=== PATIENT | male | born 1985 | race African-American/Black ===

== ENCOUNTER 2020-01-27 23:46 | Emergency (ER) | payer MEDICAID, MEDICARE, OTHER ==
[~2020-01-27] VITALS: Ht 188 cm; Wt 110.9 kg
[2020-01-27 23:50] VITALS: BP 127/80
[2020-01-27] MEDS ORDERED: IBUP-1007 PO (23:56)
--- NOTE | 2020-01-27 23:56 | PHYS DOC ---
Past Medical History Past Medical History: Bipolar, Schizophrenia Additional Past Medical Histor: METH USE YESTERDAY (CHARISSA QUIROZ APRN) Past Surgical History: No Surgical History (CHARISSA QUIROZ APRN) Smoking Status: Current Every Day Smoker Alcohol Use: None Drug Use: None (CHARISSA QUIROZ APRN) Attending Signature I have participated in the care of this patient and I have reviewed and agree with all pertinent clinical information above including history, exam, and recommendations. (DIANNE SHAIKH MD) Adult General Chief Complaint Chief Complaint: HEADACHE HPI HPI Patient is a 34 year old male with a history of schizophrenia, bipolar, currently homeless, who presents to the ED today complaining of 10 out of 10 frontal headache symptoms began 3 days ago. Patient denies any associated symptoms. Reports he has had similar headaches. He states he needs a ride from here to a hotel. He comes to the ED with a bag packed with his personal belongings. Patient denies this being the worst headache in his life. Denies any nausea vomiting. (CHARISSA QUIROZ APRN) Review of Systems Review of Systems Constitutional: Denies fever or chills [] Eyes: Denies change in visual acuity, redness, or eye pain [] HENT: Denies nasal congestion or sore throat [] Respiratory: Denies cough or shortness of breath [] Cardiovascular: No additional information not addressed in HPI [] GI: Denies abdominal pain, nausea, vomiting, bloody stools or diarrhea [] : Denies dysuria or hematuria [] Musculoskeletal: Denies back pain or joint pain [] Integument: Denies rash or skin lesions [] Neurologic: Denies headache, focal weakness or sensory changes [] All other systems were reviewed and found to be within normal limits, except as documented in this note. (CHARISSA QUIROZ APRN) Current Medications Current Medications Current Medications Medications (Trade) Dose Ordered Sig/Francisco Start Time Stop Time Status Last Admin Dose Admin Ibuprofen (Motrin) 200 mg STK-MED ONCE 01/28/20 00:03 01/28/20 00:03 DC (DIANNE SHAIKH MD) Allergies Allergies Allergies Coded Allergies Type Severity Reaction Last Updated Verified Fish Containing Products Adverse Reaction Intermediate N/V 04/30/15 No (DIANNE SHAIKH MD) Physical Exam Physical Exam Constitutional: Well developed, well nourished, no acute distress, non-toxic appearance. [] HENT: Normocephalic, atraumatic, bilateral external ears normal, oropharynx moist, no oral exudates, nose normal. [] Eyes: PERRLA, EOMI, conjunctiva normal, no discharge. [] Neck: Normal range of motion, no tenderness, supple, no stridor. [] Cardiovascular:Heart rate regular rhythm, no murmur [] Lungs & Thorax: Bilateral breath sounds clear to auscultation [] Abdomen: Bowel sounds normal, soft, no tenderness, no masses, no pulsatile masses. [] Skin: Warm, dry, no erythema, no rash. [] Back: No tenderness, no CVA tenderness. [] Extremities: No tenderness, no cyanosis, no clubbing, ROM intact, no edema. [] Neurologic: Alert and oriented X 3, normal motor function, normal sensory function, no focal deficits noted. Cranial nerves II through XII intact Psychologic: Affect normal, judgement normal, mood normal. [] (CHARISSA QUIROZ APRN) Current Patient Data Vital Signs Vital Signs Date Time Temp Pulse Resp B/P (MAP) Pulse Ox O2 Delivery O2 Flow Rate FiO2 01/27/20 23:50 97.0 97 16 127/80 (96) 98 Room Air 97.0 (DIANNE SHAIKH MD) EKG EKG [] (CHARISSA QUIROZ APRN) Radiology/Procedures Radiology/Procedures [] (CHARISSA QUIROZ APRN) Course & Med Decision Making Course & Med Decision Making Pertinent Labs and Imaging studies reviewed. (See chart for details) This is a 34-year-old homeless man presenting to the ED today with a headache for 3 days, there is nothing unusual about his headache, his neurological exam is intact. He was given ibuprofen at discharge. He requested a ride from the hospital to a hotel. Cab provided. (CHARISSA QUIROZ APRN) Dragon Disclaimer Dragon Disclaimer This electronic medical record was generated, in whole or in part, using a voice recognition dictation system. (CHARISSA QUIROZ APRN) Departure Departure Impression: Primary Impression: Headache Disposition: 01 HOME, SELF-CARE Condition: STABLE Referrals: Ghazala DOMINGUEZ MD (PCP) follow up with your doctor in 1-2 weeks Scripts Ibuprofen (IBUPROFEN) 600 Mg Tablet 600 MG PO PRN Q6HRS PRN for INFLAMMATION, #10 TAB Prov: CHARISSA QUIROZ APRN 01/27/20 Problem Qualifiers Primary Impression: Headache Headache type: unspecified Headache chronicity pattern: unspecified pattern Intractability: not intractable Qualified Codes: R51 - Headache CHARISSA QUIROZ MYRIAM Jan 27, 2020 23:56 DIANNE SHAIKH MD Jan 28, 2020 01:22
[2020-01-28] MEDS ORDERED: IBUPROFEN 200 MG TABLET. PO ONE ×2 (00:03→00:30)
== END 2020-01-28 00:07 | disposition home or self-care (01) ==
LOC: ER 23:46
DX: R51 Headache (principal); F31.9 Bipolar disorder, unspecified; F20.9 Schizophrenia, unspecified; F17.200 Nicotine dependence, unspecified, uncomplicated; Z59.0 Homelessness; Z91.013 Allergy to seafood
CPT/HCPCS: 99282